=== PATIENT | male | born 1990 | race Two or more races ===

== ENCOUNTER 2023-12-20 16:47 | Emergency (ER) | payer OTHER ==
[~2023-12-20] VITALS: Ht 177.8 cm; Wt 90.3 kg
[2023-12-20] MEDS ORDERED: cloNIDine HCL 0.2 MG TABLET PO ONE (20:30)
== END 2023-12-20 21:20 | disposition home or self-care (01) ==
LOC: ER 16:47
DX: I10 Essential (primary) hypertension (principal)

== ENCOUNTER 2024-08-13 09:30 | Emergency (ER) | payer OTHER ==
[~2024-08-13] VITALS: Ht 182.9 cm; Wt 91.2 kg
[2024-08-13] MEDS ORDERED: LOSARTAN POTAS100 MG PO (10:43)
[2024-08-13] MEDS ORDERED: DESCOVY 200-251 EACH (10:43)
[2024-08-13] MEDS ORDERED: GUAIFENESIN/DEXTROMETHORPHAN 10ML BLIST.PACK PO ONE (11:00)
[2024-08-13] MEDS ORDERED: AZITHROMYCIN 500 MG TABLET PO ONE (11:00)
[2024-08-13] MEDS ORDERED: METHYLPREDNISOLONE SOD SUCC 125 MG VIAL IV ONE (11:00)
[2024-08-13 11:12] LABS: HEMOGLOBIN 15.4 g/dL (13-16.00); MEAN CORPUSCULAR HEMOGLOBIN 30.9 pg (27.00-32.0); MEAN CORPUSCULAR HGB CONC 35.1 g/dl (32.0-36.0); PLATELET COUNT 424 K/uL (150-450); RED CELL DISTRIBUTION WIDTH 12.7 % (11.5-14.5)
[2024-08-13 12:01] LABS: ALBUMIN 4.3 gm/dL (3.4-5.0); BILIRUBIN TOTAL 0.51 mg/dL (0.3-1.2); CALCIUM 9.7 mg/dL (8.5-10.1); CREATININE SERUM 1.04 mg/dL (0.70-1.30); GFR 82.76; GLOBULINA 4.2 G/DL (2.4-3.5); POTASSIUM 4.17 mEq/L (3.5-5.1); TOTAL PROTEIN 8.5 gm/dL (6.4-8.2)
[2024-08-13] MEDS ORDERED: ZITHROMAX500 MG PO (12:27)
[2024-08-13] MEDS ORDERED: PROAIR RESPICL90 MCG IH (12:27)
[2024-08-13] MEDS ORDERED: TUSNEL LIQUID178 ML PO (12:27)
== END 2024-08-13 12:36 | disposition home or self-care (01) ==
LOC: ER 09:31
PROVIDERS: General Practice
DX: J06.9 Acute upper respiratory infection, unspecified (principal); Z20.822 Contact with and (suspected) exposure to COVID-19

== ENCOUNTER 2024-08-24 23:17 | Emergency (ER) | payer OTHER ==
[~2024-08-24] VITALS: Ht 182.9 cm; Wt 88.5 kg
[~2024-08-24 23:17] MED LIST: DESCOVY 200-251 EACH; LOSARTAN POTAS100 MG PO; PROAIR RESPICL90 MCG IH; TUSNEL LIQUID178 ML PO; ZITHROMAX500 MG PO
[2024-08-25] MEDS ORDERED: HYDROCODONE/CHLORPHEN P-STIREX 5 ML ML PO STA (04:45)
[2024-08-25] MEDS ORDERED: ALBUTEROL SULFATE 3 ML/2.5 MG AMPUL.NEB IH STA (04:45)
[2024-08-25 05:00] LABS: HEMATOCRIT 43.3 % (39.0-48.0); MEAN CELL VOLUME 88.2 fL (80.0-100.00); MEAN CORPUSCULAR HEMOGLOBIN 30.6 pg (27.00-32.0); MEAN CORPUSCULAR HGB CONC 34.7 g/dl (32.0-36.0); PLATELET COUNT 342 K/uL (150-450); RED BLOOD COUNT 4.91 M/uL (4.00-6.00); RED CELL DISTRIBUTION WIDTH 12.6 % (11.5-14.5)
[2024-08-25] MEDS ORDERED: PROMETHAZINE-D473 M1 PO (07:14)
[2024-08-25] MEDS ORDERED: ALBUTEROL2.5 MG/3 M IH (07:17)
== END 2024-08-25 07:21 | disposition home or self-care (01) ==
LOC: ER 23:19
PROVIDERS: General Practice
DX: J06.9 Acute upper respiratory infection, unspecified (principal)